=== PATIENT | male | born 1955 | race Caucasian/White ===

== ENCOUNTER → 2017-09-29 09:39 | Outpatient (CLI) | payer OTHER, SELFPAY ==
[2017-09-29 10:43] LABS: Hematocrit 48.5 % (41-53); Hemoglobin 16.8 g/dL (13.5-17.5); Mean Corpuscular HGB Conc 34.7 % (30-36); Mean Corpuscular Hemoglobin 33.1 PG (26-34); Mean Corpuscular Volume 95.6 fL (80-100); Platelet Count 260 X10^3/uL (150-400); Red Blood Cell Count 5.07 X10^6/uL (4.5-5.9); Red Cell Distribution Width 12.7 % (11.6-14.8); White Blood Cell Count 5.5 X10^3/uL (4.5-11.0)
[2017-09-29 11:08] LABS: Alanine Aminotransferase 33 IU/L (21-72); Albumin 4.3 g/dL (3.5-5.0); Albumin Globulin Ratio 1.3 (1.0-2.8); Alkaline Phosphatase 77 U/L (38-126); Aspartate Aminotransferase 25 IU/L (17-59); BUN Creatinine Ratio 13.3 (6-22); Bilirubin Total 0.8 mg/dL (0.2-1.3); Calcium 9.6 mg/dL (8.4-10.2); Cholesterol 252 mg/dL (140-199); Estimated Glomerular Filt Rate > 60.0 mL/min (>60); Globulin 3.3 g/dL (1.7-4.1); Glucose 92 mg/dL (80-110); HDL Cholesterol 64 mg/dL (40-60); HEMOLYSIS < 15 (0-50); LDL Cholesterol Calculated 166 mg/dL (<100); Sodium 140 mmol/L (137-145); Total Protein 7.6 g/dL (6.3-8.2); Triglycerides 108 mg/dL (35-150)
[2017-09-29 11:39] LABS: Prostate Specific Antigen Scrn 1.43 ng/mL (0.1-4.0)
== END ==
PROVIDERS: PCP Internal Medicine; Visit Provider Internal Medicine
DX: E78.5 Hyperlipidemia, unspecified (principal); D12.6 Benign neoplasm of colon, unspecified; Z00.00 Encounter for general adult medical examination without abnormal findings
CPT/HCPCS: 36415; 80053; 80061; 85027; G0103

== ENCOUNTER → 2018-09-09 07:47 | Outpatient (CLI) | payer OTHER, SELFPAY ==
[2018-09-09 09:19] LABS: Alanine Aminotransferase 25 IU/L (21-72); Albumin 4.4 g/dL (3.5-5.0); Albumin Globulin Ratio 1.3 (1.0-2.8); Alkaline Phosphatase 71 U/L (38-126); Aspartate Aminotransferase 29 IU/L (17-59); BUN Creatinine Ratio 18.9 (6-22); Bilirubin Total 0.6 mg/dL (0.2-1.3); Blood Urea Nitrogen 17 mg/dL (9-20); Calcium 9.3 mg/dL (8.4-10.2); Carbon Dioxide 29 mmol/L (22-32); Chloride 101 mmol/L (98-107); Cholesterol 220 mg/dL (140-199); Estimated Glomerular Filt Rate > 60.0 mL/min (>60); Globulin 3.4 g/dL (1.7-4.1); Glucose 95 mg/dL (80-110); HDL Cholesterol 59 mg/dL (40-60); HEMOLYSIS < 15 (0-50); LDL Cholesterol Calculated 128 mg/dL (<100); Potassium 4.3 mmol/L (3.4-5.1); Sodium 140 mmol/L (137-145); Total Protein 7.8 g/dL (6.3-8.2); Triglycerides 166 mg/dL (35-150)
[2018-09-09 09:36] LABS: Vitamin D 25 Hydroxy (D3) 62.4 ng/mL (30.0-100.0)
== END ==
PROVIDERS: PCP Student in an Organized Health Care Education/Training Program; Visit Provider Student in an Organized Health Care Education/Training Program
DX: E55.9 Vitamin D deficiency, unspecified (principal); E78.5 Hyperlipidemia, unspecified; Z79.899 Other long term (current) drug therapy
CPT/HCPCS: 36415; 80053; 80061; 82306

== ENCOUNTER 2019-03-30 07:36 | Day surgery (SDC) | payer OTHER, SELFPAY ==
--- NOTE | 2019-03-30 | PATH_ITS ---
[facility] Accession Number: [id number] . 01 Material submitted: . PART A: colon - ASCENDING COLON POLYPS BIOPSY X3 PART B: colon - COLON POLYP AT 60 CM . 02 Diagnosis: A. Ascending Colon Polyps, Biopsies: Fragments of tubular adenoma and fragments of hyperplastic polyp (three polyps removed). . B. Colon at 60 cm, Polyp: Colonic mucosa with focal mucosal hyperplasia. Negative for dysplasia or malignancy. Additional step sections examined. MRV 04/02/2019 1345 Local . 02 Electronically signed: . Dejuan Alvarez MD, PhD, Pathologist NPI- [id number] . 01 Gross description: . Part A: ASCENDING COLON POLYPS BIOPSY X3: Received in formalin are multiple fragment(s) of peoples, soft tissue measuring 0.1 x 0.1 x 0.1 cm to 0.3 x 0.2 x 0.2 cm submitted entirely in 1 cassette(s) Part B: COLON POLYP AT 60 CM: Received in formalin are 4 fragment(s) of peoples, soft tissue measuring 0.1 x 0.1 x 0.1 cm to 0.3 x 0.2 x 0.2 cm submitted entirely in 1 cassette(s) /[facility] [place] 03/30/2019 2226 Local . 02 Pathologist provided ICD-10: D12.2, K63.5 . 02 CPT . 918121, 015269 Performed at: [facility] [address], [place], [place] [id number] MD Ravi Farley MD Phone: [phone] Performed at: [facility] [address] [place], [place] [id number] MD Daniella Hazel MD Phone: [phone]
[2019-03-30 08:08] VITALS: BP 145/94; PULSE 114; RESP 16; TEMP 36.3; O2SAT 97; BMI 24.7
[2019-03-30] MEDS: fentaNYL 250 MCG/5 ML INJ IV (09:04)
[2019-03-30] MEDS: MIDAZOLAM 5 MG/5 ML VIAL IV (09:04)
--- NOTE | 2019-03-30 09:27 | PM.HP.1 ---
History of Present Illness History of Present Illness Date Patient Seen: 03/30/19 Time Patient Seen: 09:05 Chief complaint: [id number] Narrative: The patient is a gentleman here for a screening colonoscopy. He has had multiple colonoscopies and had multiple polyps removed. His last exam was 3 years ago. Patient History Medical History Adopted (Resolved) Benign neoplasm of adenomatous polyp (Resolved 2015) Colon polyp (Resolved 2010) Hepatitis A (Acute ~1989) Hyperlipidemia (Chronic) Surgical History H/O colonoscopy (Resolved 2010) History of colonoscopy with polypectomy (Acute) History of hernia repair (Acute) Family & Social History Social History: household members significant other Tobacco & Substance use: Smoking Status Never smoker Meds Home Medications and Allergies Home Medications Medication Instructions Recorded Confirmed Type rosuvastatin 40 mg tablet 40 mg PO DAILY #90 tab 12/03/17 03/30/19 Rx paroxetine HCl 30 mg tablet 30 mg PO QDAY #90 tab 11/17/18 03/30/19 Rx Allergies Allergy/AdvReac Type Severity Reaction Status Date / Time No Known Drug Allergies Allergy Verified 03/30/19 08:03 Review of Systems Review of Systems ROS Unobtainable: All systems reviewed & are unremarkable except as noted in HPI and below Exam Vital Signs (past 8 hours): - 03/30/19 08:08 Temperature 97.3 F L Pulse Rate 114 H Respiratory Rate 16 Blood Pressure 145/94 H Pulse Oximetry 97 Oxygen Delivery Method Room Air Narrative Exam Narrative: Pleasant cooperative patient no apparent distress. Lungs are clear to auscultation. No rales or rhonchi. Heart regular rate and rhythm no murmur gallop. Abdomen is soft nontender without mass. No obvious hernias. Patient is alert and oriented x3. Assessment & Plan Assessment & Plan narrative: The patient for a screening colonoscopy. I have discussed the procedure with them. Risks of bleeding, perforation which would necessitate major operation, failure to find remove all lesions, the potential tattoo were all discussed. All questions were answered. They wished to proceed.
--- NOTE | 2019-03-30 09:29 | PM.PREOP ---
Pre-operative Note Interval Note History & Physical reviewed/Exam performed by Physician: Yes Changes to H&P: No ASA Class (for procedural sedation): I
--- NOTE | 2019-03-30 09:59 | PM.OP.ENDO ---
Operative Date/Time/Diagnoses Date of procedure: 03/30/19 Time of procedure: 10:00 Pre-op diagnosis: History of numerous polyps. Last exam 3 years ago. Post-op diagnosis: same (Polyps. Pandiverticulosis. Rectal varicosities.) Procedure & Clinicians Study performed: Colonoscopy with cold biopsy Same procedure as scheduled: Yes Indications: History of polyps. Screening. Surgeon: Frederick Diaz Procedure Notes SCOAP/Timeout: Performed Procedure in detail: The patient was placed in the left lateral decubitus position and underwent IV sedation directed by the surgeon consisting of fentanyl and Versed. Digital exam was unremarkable. Prostate is normal. No masses felt.. The scope was inserted and advanced through the rectum into the sigmoid, descending, transverse, and ascending colon. Numerous diverticuli were seen in the sigmoid colon an additional diverticuli were scattered along the path of the colon.. The cecum was reached identified by the ileocecal valve and the appendiceal opening. The scope was gradually brought out. Polyps were found at the ascending colon(3 of them) and at 60 cm from the anal verge(1 of them). All were small. The scope ultimately was retroflexed in the rectum. The appearance was remarkable for rectal varicosities though there did not appear to be hemorrhoidal disease at the anus.. The scope was removed and the patient tolerated the procedure well. The prep was very good. Scope withdrawal time: 8 minutes(17 total) Sedation minutes: 28 Findings: diverticulosis, polyp (For of them removed) and other findings (Rectal varicosities) Specimen(s): other (Polyps) Complications: none Post-procedure Recommendations: Colonscopy in 5 years (Due to history of polyps) Follow up: as needed Disposition: PACU
[2019-03-30 10:05] VITALS: BP 127/75; PULSE 102; RESP 15; TEMP 36.2; O2SAT 94
[2019-03-30 10:12] VITALS: BP 119/75; PULSE 104; RESP 16; TEMP 36.9; O2SAT 99
== END 2019-03-30 10:18 | disposition home or self-care (01) ==
PROVIDERS: PCP Student in an Organized Health Care Education/Training Program; Visit Provider Specialist
PROC: 0DJD8ZZ Inspection of Lower Intestinal Tract, Via Natural or Artificial Opening Endoscopic (ICD-10-PCS; CPT 45378; principal; 2019-03-30 08:45)
DX: Z12.11 Encounter for screening for malignant neoplasm of colon (principal); Z86.010 Personal history of colon polyps; E78.5 Hyperlipidemia, unspecified; I86.8 Varicose veins of other specified sites; K57.30 Diverticulosis of large intestine without perforation or abscess without bleeding; D12.2 Benign neoplasm of ascending colon; K63.5 Polyp of colon
CPT/HCPCS: 45380; 99152; 99153; J2250; J3010

== ENCOUNTER → 2019-11-23 09:16 | Outpatient (CLI) | payer OTHER, SELFPAY ==
[2019-11-23 10:19] LABS: Prostate Specific Antigen Scrn 1.15 ng/mL (0.1-4.0)
== END ==
PROVIDERS: PCP Student in an Organized Health Care Education/Training Program; Referring Provider Student in an Organized Health Care Education/Training Program; Visit Provider Student in an Organized Health Care Education/Training Program
DX: Z12.5 Encounter for screening for malignant neoplasm of prostate (principal)
CPT/HCPCS: 36415; G0103

== ENCOUNTER → 2020-05-26 12:56 | Outpatient (CLI) | payer OTHER, SELFPAY ==
[2020-05-26] MEDS: COVID-19 VACC(MODERNA-1)/PF 100 MCG/0.5 ML VIAL IM (13:01)
== END ==
PROVIDERS: PCP Student in an Organized Health Care Education/Training Program; Visit Provider Internal Medicine
DX: Z23 Encounter for immunization (principal)
CPT/HCPCS: 0011A; 91301

== ENCOUNTER → 2020-06-23 12:48 | Outpatient (CLI) | payer MEDICARE, OTHER, SELFPAY ==
[2020-06-23] MEDS: COVID-19 VACC #2, MRNA(MOD) 100 MCG/0.5 ML VIAL IM (12:58)
== END ==
PROVIDERS: PCP Student in an Organized Health Care Education/Training Program; Visit Provider Internal Medicine
DX: Z23 Encounter for immunization (principal)
CPT/HCPCS: 0012A; 91301

== ENCOUNTER → 2020-12-11 08:03 | Outpatient (CLI) | payer MEDICARE, OTHER, SELFPAY ==
--- NOTE | 2020-12-11 08:04 | DI.ECHO.S_ITS ---
[facility] +---------+ : : [address] : : : : [id number] : : : : Phone: [phone] +---------+ Echocardiogram Report + + :Name: MURIEL CABRERA Study Date: 12/11/2020 Height: 73 in : :[facility] ReadingLocation: Weight: 195 lb : : Gender: Male BSA: 2.1 m2 : :: 1955 Age: 65 yrs BP: 143/96 mmHg: :Reason For Study: LEFT VENTRICULAR HYPERTROPHY : :Ordering Physician: ISAI, : :COCO Performed By: Adele Lira : :Referring: COCO ALEX : + + Interpretation Summary Borderline concentric left ventricular hypertrophy with ejection fraction 50- 55%. Septal motion is consistent with conduction abnormality. Moderate mitral regurgitation. Mild tricuspid regurgitation. The ascending aorta is mildly enlarged. Procedure: A two-dimensional transthoracic echocardiogram with color flow and Doppler was performed. The study quality was technically adequate. There is no prior echocardiogram noted for this patient. The patient was in sinus rhythm with heart rates between 77-84 bpm during the exam. Left Ventricle: The left ventricle is normal in size. There is borderline concentric left ventricular hypertrophy. The ejection fraction is estimated to be 50-55%. Septal motion is consistent with conduction abnormality. Diastolic parameters suggest probable normal left ventricular diastolic function and normal filling pressures. Right Ventricle: The right ventricle is normal in size and function. Atria: The left atrial size is normal. Right atrial size is normal. There is no Doppler evidence for an interatrial shunt. Mitral Valve: The mitral valve leaflets appear thin and pliable. There is no mitral annular calcification. There is moderate mitral regurgitation. Aortic Valve: The aortic valve opens well. There is no aortic valve stenosis. No aortic regurgitation is present. Tricuspid Valve: The tricuspid valve is normal in structure and function. There is mild tricuspid regurgitation. The right ventricular systolic pressure is estimated to be at least 22 mmHg based on an estimated right atrial pressure of 3 mm Hg. Pulmonic Valve: The pulmonic valve is not well seen, but is grossly normal. There is no pulmonic valvular regurgitation. Great Vessels: The aortic root is normal size. The ascending aorta is mildly enlarged. The IVC is of normal diameter and collapses greater than 50% with a sniff. This suggests a low right atrial pressure of 3 mm Hg. Pericardium/ Pleura There is no pericardial effusion. There is no pleural effusion. MMode/2D Measurements & Calculations LVIDd: 4.5 cm LVOT diam: 2.2 cm LVIDs: 3.4 cm Ao root diam: 3.5 cm FS: 23.1 % asc Aorta Diam: 3.7 cm IVSd: 1.1 cm Ao Arch Diam (Prox Trans): 3.1 cm LVPWd: 1.0 cm LV burks. diameter/BSA (cm/m^2): 2.1 LV sys. diameter/BSA (cm/m^2): 1.6 LA A2 area: 21.7 cm2 RA long axis: 5.0 cm LA A4 area: 18.5 cm2 RA area: 16.4 cm2 LA length (vol): 5.6 cm RA vol: 45.2 ml LA vol: 60.2 ml RA : 21.2 ml/m2 LA vol index: 28.3 ml/m2 IVC diam: 1.2 cm RVD1 (basal): 3.4 cm TAPSE: 2.2 cm Doppler Measurements & Calculations Ao V2 max: 135.9 cm/sec LVOT Max Don: 96.7 cm/sec Ao V2 mean: 90.9 cm/sec LV V1 max P.7 mmHg Ao max P.4 mmHg LV V1 VTI: 19.5 cm Ao mean P.7 mmHg XAVIER(I,D): 2.4 cm2 Ao V2 VTI: 30.1 cm XAVIER(V,D): 2.6 cm2 sev ratio: 0.65 XAVIER indexed to BSA (cm^2/m^2): 1.1 MV E max don: 42.4 cm/sec TR max don: 218.2 cm/sec MV A max don: 52.1 cm/sec TR max P.0 mmHg MV E/A: 0.81 PA V2 max: 106.2 cm/sec Med Peak E' Don: 6.7 cm/sec PA V2 mean: 71.0 cm/sec E/E' med: 6.3 PA mean P.2 mmHg Lat Peak E' Don: 9.0 cm/sec PA pr(Accel): 36.2 mmHg E/E' lat: 4.7 E/e' average: 5.5 MV dec time: 0.21 sec SV(LVOT): 72.2 ml Electronically signed by: Dayne Phillips on Reading Physician:12/12/2020 11:06 AM
== END ==
PROVIDERS: PCP Student in an Organized Health Care Education/Training Program; Referring Provider Student in an Organized Health Care Education/Training Program; Visit Provider Student in an Organized Health Care Education/Training Program
DX: R94.31 Abnormal electrocardiogram [ECG] [EKG] (principal); I08.1 Rheumatic disorders of both mitral and tricuspid valves; I77.89 Other specified disorders of arteries and arterioles
CPT/HCPCS: 93306

== ENCOUNTER → 2021-11-27 08:09 | Outpatient (CLI) | payer MEDICARE, OTHER, SELFPAY ==
[2021-11-27 09:09] LABS: Add Manual Diff / Slide Review NO; Basophils Absolute Auto 0 /uL (0-100); Basophils Percent Auto 0.6 % (0-2); Eosinophils Absolute Auto 100 /uL (0-450); Eosinophils Percent Auto 1.3 % (2-4); Hematocrit 45.4 % (41-53); Hemoglobin 15.7 g/dL (13.5-17.5); Lymphocytes Absolute Auto 1800 /uL (1100-4500); Lymphocytes Percent Auto 22.3 % (25-40); Mean Corpuscular HGB Conc 34.7 % (30-36); Mean Corpuscular Hemoglobin 33.4 PG (26-34); Mean Corpuscular Volume 96.4 fL (80-100); Monocytes Absolute Auto 800 /uL (0-900); Monocytes Percent Auto 10.1 % (3-14); Neutrophils Absolute Auto 5300 /uL (1500-7000); Neutrophils Percent Auto 65.7 % (50-75); Platelet Count 232 X10^3/uL (150-400); Red Blood Cell Count 4.71 X10^6/uL (4.5-5.9); White Blood Cell Count 8.1 X10^3/uL (4.5-11.0)
[2021-11-27 09:39] LABS: Alanine Aminotransferase 24 IU/L (<50); Albumin 4.4 g/dL (3.5-5.0); Albumin Globulin Ratio 1.3 (1.0-2.8); Alkaline Phosphatase 83 U/L (38-126); Aspartate Aminotransferase 31 IU/L (17-59); BUN Creatinine Ratio 12.1 (6-22); Bilirubin Total 0.7 mg/dL (0.2-1.3); Blood Urea Nitrogen 11 mg/dL (9-20); Carbon Dioxide 30 mmol/L (22-32); Chloride 106 mmol/L (98-107); Cholesterol 183 mg/dL (140-199); Estimated Glomerular Filt Rate > 60 mL/min (>60); Globulin 3.3 g/dL (1.7-4.1); Glucose 81 mg/dL (80-110); HDL Cholesterol 61 mg/dL (40-60); HEMOLYSIS < 15 (0-50); LDL Cholesterol Calculated 103 mg/dL (<100); Potassium 4.7 mmol/L (3.4-5.1); Sodium 140 mmol/L (137-145); Total Protein 7.7 g/dL (6.3-8.2); Triglycerides 95 mg/dL (35-150)
[2021-11-27 10:03] LABS: Prostate Specific Antigen Scrn 1.18 ng/mL (0.1-4.0)
== END ==
PROVIDERS: PCP Family Medicine; Referring Provider Family Medicine; Visit Provider Family Medicine
DX: E78.5 Hyperlipidemia, unspecified (principal); Z12.5 Encounter for screening for malignant neoplasm of prostate; Z00.00 Encounter for general adult medical examination without abnormal findings
CPT/HCPCS: 36415; 80053; 80061; 85025; G0103

== ENCOUNTER → 2022-01-10 06:53 | Outpatient (CLI) | payer MEDICARE, OTHER, SELFPAY ==
--- NOTE | 2022-01-10 06:56 | DI.ECHO.S_ITS ---
[facility]---------+ [facility] +---------+ : : [address] : [address] : [address] : : : : [id number] : : : : Phone: [phone] : : [phone] +---------+ Echocardiogram Report + + :Name: MURIEL CABRERA Study Date: 01/10/2022 Height: 73 in : :[facility] ReadingLocation: Weight: 195 lb : : Gender: Male BSA: 2.1 m2 : :: 1955 Age: 66 yrs BP: 162/98 mmHg: :Reason For Study: Aortic, Ascending Aneurysm : :Ordering Physician: : :GIORGIO CAPELLAN Performed By: Trell Huber : :Referring: GIORGIO CAPELLAN : + + Interpretation Summary 1) Normal left ventriciular size and thickenss with low normal sysotlic function (EF 50-55%). 2 Normal right ventricular size and function. 3) No significant valvular abnormalities. 4) The ascending aorta is at the upper limits of normal in size at 3.7cm. 5) Hypertension present during the study (BP 162/98mmHg). 6) No prior echo available for comparison. Procedure: A two-dimensional transthoracic echocardiogram with color flow and Doppler was performed. The study quality was technically adequate. Comparison is made with the echocardiogram of 12/11/2020. The patient was in normal sinus rhythm during the exam. Left Ventricle: The left ventricle is normal in size and wall thickness. Left ventricular systolic function is low normal. The ejection fraction is estimated to be 50-55%. There are no focal wall motion abnormalities. Diastolic function could not be accurately assessed due to unobtainable data. Right Ventricle: The right ventricle is normal in size and function. Atria: Both atria are normal in size. The interatrial septum grossly appears intact with no obvious evidence for an atrial septal defect. Mitral Valve: The mitral valve is normal in structure and function. There is mild mitral regurgitation. Aortic Valve: The aortic valve is normal in structure and function. There is no aortic valve stenosis. No aortic regurgitation is present. Tricuspid Valve: The tricuspid valve is normal in structure and function. No tricuspid regurgitation. Pulmonary artery pressures cannot be estimated because of the lack of a measurable TR jet velocity. Pulmonic Valve: The pulmonic valve is not well seen, but is grossly normal. There is no pulmonic valvular regurgitation. Great Vessels: The aortic root is normal size. The ascending aorta is at the upper limits of normal in size. The IVC is of normal diameter and collapses greater than 50% with a sniff. This suggests a low right atrial pressure of 3 mm Hg. Pericardium/ Pleura There is no pericardial effusion. There is no pleural effusion. MMode/2D Measurements & Calculations LVIDd: 5.5 cm LVOT diam: 2.2 cm LVIDs: 4.1 cm Ao root diam: 3.2 cm FS: 25.5 % asc Aorta Diam: 3.7 cm IVSd: 0.90 cm LVPWd: 1.0 cm LV burks. diameter/BSA (cm/m^2): 2.6 LV sys. diameter/BSA (cm/m^2): 1.9 LA dimension: 4.1 cm RA long axis: 4.8 cm LA A2 area: 20.9 cm2 LA A4 area: 15.5 cm2 LA length (vol): 5.8 cm LA vol: 47.5 ml LA vol index: 22.3 ml/m2 LVLs ap4: 7.2 cm LVLd ap2: 7.8 cm LVLs ap2: 6.8 cm TAPSE_phl: 2.1 cm Doppler Measurements & Calculations Ao V2 max: 126.0 cm/sec LVOT Max Don: 92.7 cm/sec Ao V2 mean: 93.7 cm/sec LV V1 max P.4 mmHg Ao max P.0 mmHg LV V1 VTI: 18.4 cm Ao mean P.0 mmHg XAVIER(I,D): 3.0 cm2 Ao V2 VTI: 23.7 cm XAVIER(V,D): 2.8 cm2 sev ratio: 0.78 XAVIER indexed to BSA (cm^2/m^2): 1.4 MV E max don: 47.6 cm/sec SV(LVOT): 69.9 ml MV A max don: 68.1 cm/sec MV E/A: 0.70 Med Peak E' Don: 8.2 cm/sec E/E' med: 5.8 Lat Peak E' Don: 9.2 cm/sec E/E' lat: 5.2 E/e' average: 5.5 MV dec time: 0.19 sec AV VR_phl: 0.74 MV P1/2t-pr_phl: 55.0 msec XAVIER(VTI)/BSA_phl: 1.4 Reading Physician:01:52 PM
== END ==
PROVIDERS: PCP Family Medicine; Referring Provider Family Medicine; Visit Provider Family Medicine
DX: I77.89 Other specified disorders of arteries and arterioles (principal); I34.0 Nonrheumatic mitral (valve) insufficiency; I10 Essential (primary) hypertension
CPT/HCPCS: 93306

== ENCOUNTER → 2022-02-13 09:34 | Outpatient (CLI) | payer MEDICARE, OTHER, SELFPAY ==
[2022-02-13 11:38] LABS: COVID19 -Nasal RAPID Negative (Negative)
== END ==
PROVIDERS: PCP Family Medicine; Visit Provider Surgery
DX: Z20.822 Contact with and (suspected) exposure to COVID-19 (principal); Z01.812 Encounter for preprocedural laboratory examination
CPT/HCPCS: 87635; C9803

== ENCOUNTER 2022-02-14 06:35 | Day surgery (SDC) | payer MEDICARE, OTHER, SELFPAY ==
--- NOTE | 2022-02-14 | PATH_ITS ---
[facility] Accession Number: [id number] . 01 Material submitted: . colon - ASCENDING POLYP . 01 Diagnosis: Ascending Colon, Polyp, Biopsy: Tubular adenoma. MRV 02/18/2022 1640 Local . 01 Electronically signed: . Daniella Hazel MD, Pathologist NPI- [id number] . 01 Gross description: . ASCENDING POLYP: Received in formalin are 3 fragment(s) of peoples, soft tissue measuring 1.5 x 0.5 x 0.4 cm to 0.2 x 0.1 x 0.1 cm submitted entirely in 1 cassette(s) /[facility]PE 02/16/2022 0542 Local . 01 Pathologist provided ICD-10: D12.2 . 01 CPT . 968082 Specimen Comment: A courtesy copy of this report has been sent to [phone] Performed at: 01 [facility] [address] [place] [address], [place], [place] [id number] MD Ravi Farley MD Phone: [phone]
[2022-02-14 07:34] VITALS: BP 143/97; PULSE 105; RESP 16; TEMP 36.6; O2SAT 96; BMI 25.7
--- NOTE | 2022-02-14 07:51 | PM.HP.1 ---
History of Present Illness History of Present Illness Date Patient Seen: 02/14/22 Time Patient Seen: 07:51 Chief complaint: SDC Narrative: Jose is a 66-year-old man who has had multiple colonoscopies in the past most recently [address] Diaz. He has had adenomatous polyps removed, including most recently 3 years ago. Patient History Medical History Adopted Benign neoplasm of adenomatous polyp (2015) Colon polyp (2010) Hepatitis A (~1989) Hyperlipidemia Well adult exam Surgical History H/O colonoscopy (2010) History of colonoscopy with polypectomy History of hernia repair Family & Social History Social History: household members spouse,significant other Tobacco & Substance use: Smoking Status Never smoker alcohol intake current alcohol intake frequency 3 or more drinks per day Substance Use Type does not use Meds Home Medications and Allergies Home Medications Medication Instructions Recorded Confirmed Type paroxetine HCl 20 mg tablet 30 mg PO DAILY #90 tabs 11/01/21 02/14/22 Rx rosuvastatin 40 mg tablet 40 mg PO DAILY #90 tabs 11/26/21 02/14/22 Rx Allergies Allergy/AdvReac Type Severity Reaction Status Date / Time No Known Drug Allergies Allergy Verified 02/14/22 07:29 Exam Vital Signs (past 8 hours): - 02/14/22 07:34 Temperature 97.9 F Pulse Rate 105 H Respiratory Rate 16 Blood Pressure 143/97 H Pulse Oximetry 96 Oxygen Delivery Method Room Air Oxygen Delivery Method Room Air Const General: healthy appearing Resp Effort & Inspection: normal respiratory effort Assessment & Plan Assessment and plan (1) Personal history of colonic polyps: Status: Acute Plan Jose is a 66-year-old man with a personal history of colon polyps. We reviewed the risks and benefits of colonoscopy and he would like to proceed. Time Spent With Patient Critical Care time: I spent a total of [] minutes of critical care time on this patient's care today; this time is exclusive of procedural time.
[2022-02-14] MEDS: LACTATED RINGERS 1,000 ML 200 ML IV (07:58)
[2022-02-14] MEDS: MIDAZOLAM 5 MG/5 ML VIAL IV (08:02)
[2022-02-14] MEDS: fentaNYL 100 MCG/2 ML INJ IV (08:02)
[2022-02-14 08:26] VITALS: BP 119/77; PULSE 97; RESP 16; TEMP 36.5; O2SAT 97
--- NOTE | 2022-02-14 08:27 | PM.OP.COLON ---
Operative Date/Time/Diagnoses Date of procedure: 02/14/22 Time of procedure: 08:27 Pre-op diagnosis: History of colon polyps Post-op diagnosis: same Procedure & Clinicians Study performed: Colonoscopy Same procedure as scheduled: Yes Surgeon: Javan Madison Procedure Notes Procedure in detail: Surgeon: Javan Madison MD Procedure: The patient was brought to the endoscopy suite, placed in left lateral decubitus position. The patient was connected to monitoring devices. A time-out was performed. Sedation was administered. Once the patient was adequately sedated, a digital rectal exam was performed and was normal. The scope was then inserted and advanced to the cecum where the appendiceal orifice was identified and photographed. The scope was then slowly withdrawn over greater than 6 minutes. The mucosa was thoroughly inspected. There was a 1 cm pedunculated polyp on a stalk in the ascending colon near the hepatic flexure. Polyp was removed with a cold snare. There was sigmoid diverticulosis. The scope was retroflexed in the rectum. There were internal hemorrhoids. The scope was straightened and removed. The patient was awakened and brought to recovery. Versed: 5 mg Fentanyl: 100 mcg EBL: 5 mL Findings: 1 cm hepatic flexure polyp and sigmoid diverticulosis Scope withdrawal time: 11 Sedation minutes: 19 Post-procedure Recommendations: Will call with biopsy results Disposition: PACU
[2022-02-14 08:31] VITALS: BP 103/77; PULSE 98; RESP 14; O2SAT 93
[2022-02-14 08:45] VITALS: BP 110/66; PULSE 70; RESP 16; TEMP 36.8; O2SAT 98
== END 2022-02-14 08:58 | disposition home or self-care (01) ==
PROVIDERS: PCP Family Medicine; Referring Provider Surgery; Visit Provider Surgery
PROC: 0DJD8ZZ Inspection of Lower Intestinal Tract, Via Natural or Artificial Opening Endoscopic (ICD-10-PCS; CPT 45378; principal; 2022-02-14 07:45)
DX: Z12.11 Encounter for screening for malignant neoplasm of colon (principal); Z86.010 Personal history of colon polyps; K57.30 Diverticulosis of large intestine without perforation or abscess without bleeding; K64.8 Other hemorrhoids; D12.2 Benign neoplasm of ascending colon
CPT/HCPCS: 45385; 99152; J2250; J3010

== ENCOUNTER → 2022-08-06 08:35 | Outpatient (CLI) | payer MEDICARE, OTHER, SELFPAY ==
[2022-08-06 10:09] LABS: Alanine Aminotransferase 25 IU/L (<50); Albumin 4.1 g/dL (3.5-5.0); Albumin Globulin Ratio 1.1 (1.0-2.8); Alkaline Phosphatase 66 U/L (38-126); Aspartate Aminotransferase 27 IU/L (17-59); BUN Creatinine Ratio 16.5 (6-22); Bilirubin Total 0.5 mg/dL (0.2-1.3); Blood Urea Nitrogen 14 mg/dL (9-20); Calcium 9.3 mg/dL (8.4-10.2); Carbon Dioxide 26 mmol/L (22-32); Chloride 108 mmol/L (98-107); Cholesterol 199 mg/dL (140-199); Estimated Glomerular Filt Rate > 60 mL/min (>60); Globulin 3.6 g/dL (1.7-4.1); Glucose 98 mg/dL (80-110); HDL Cholesterol 62 mg/dL (40-60); HEMOLYSIS < 15 (0-50); LDL Cholesterol Calculated 119 mg/dL (<100); Potassium 4.3 mmol/L (3.4-5.1); Sodium 138 mmol/L (137-145); Total Protein 7.7 g/dL (6.3-8.2); Triglycerides 90 mg/dL (35-150)
[2022-08-06 10:36] LABS: Prostate Specific Antigen 1.32 ng/mL (0.10-4.00)
== END ==
PROVIDERS: PCP Family Medicine; Referring Provider Family Medicine; Visit Provider Family Medicine
DX: E78.5 Hyperlipidemia, unspecified (principal); D12.6 Benign neoplasm of colon, unspecified; F32.9 Major depressive disorder, single episode, unspecified; Z12.5 Encounter for screening for malignant neoplasm of prostate
CPT/HCPCS: 36415; 80053; 80061; 84153; G0103

== ENCOUNTER → 2023-01-27 06:50 | Outpatient (CLI) | payer MEDICARE, OTHER, SELFPAY ==
--- NOTE | 2023-01-27 06:51 | DI.ECHO.S_ITS ---
[facility]---------[facility] +---------+ : : [address] : [address] : : : : [id number] : : : : Phone: [phone] : : [phone] +---------+ Echocardiogram Report + + :Name: MURIEL CABRERA Study Date: 01/27/2023 Height: 73 in : :[facility] ReadingLocation: Weight: 190 lb : : Gender: Male BSA: 2.1 m2 : :: 1955 Age: 67 yrs BP: 137/80 mmHg: :Reason For Study: Elevation of Levels of Lactic Acid : :Dehydrogenase : :Ordering Physician: TIMI, : :GIORGIO Performed By: Shanna Huerta : :Referring: GIORGIO CAPELLAN : + + Interpretation Summary The ejection fraction is estimated to be 60-65%. Diastolic parameters suggest probable normal left ventricular diastolic function and normal filling pressures. The right ventricle is normal in size and function. There is moderate mitral regurgitation. Pulmonary artery pressures cannot be estimated because of the lack of a measurable TR jet velocity. The ascending aorta is at the upper limits of normal in size, 3.7 cm. Compared to the prior study dated 01/10/2022, the mitral regurgitation has increased. Procedure: A two-dimensional transthoracic echocardiogram with color flow and Doppler was performed. The study quality was technically adequate. Comparison is made with the echocardiogram of 01/10/2022. The patient was in a tachycardic rhythm during the exam. Left Ventricle: The left ventricle is normal in size and wall thickness. The ejection fraction is estimated to be 60-65%. Diastolic parameters suggest probable normal left ventricular diastolic function and normal filling pressures. Right Ventricle: The right ventricle is normal in size and function. Atria: The left atrial size is normal. Right atrial size is normal. There is no Doppler evidence for an interatrial shunt. Mitral Valve: The mitral valve is normal. There is no mitral valve stenosis. There is moderate mitral regurgitation. Aortic Valve: The aortic valve is trileaflet. The aortic valve opens well. There is mild aortic valve sclerosis. There is no aortic valve stenosis. No aortic regurgitation is present. Tricuspid Valve: The tricuspid valve is normal. There is no tricuspid stenosis. There is trace tricuspid regurgitation. Pulmonary artery pressures cannot be estimated because of the lack of a measurable TR jet velocity. Pulmonic Valve: The pulmonic valve is not well visualized. There is no pulmonic valvular stenosis. There is trace pulmonic regurgitation. Great Vessels: The aortic root is normal size. The ascending aorta is at the upper limits of normal in size. The pulmonary artery is normal size. The IVC is of normal diameter and collapses greater than 50% with a sniff. This suggests a low right atrial pressure of 3 mm Hg. Pericardium/ Pleura There is no pericardial effusion. MMode/2D Measurements & Calculations LVIDd: 4.4 cm LVOT diam: 2.1 cm LVIDs: 2.4 cm Ao root diam: 3.2 cm FS: 45.5 % asc Aorta Diam: 3.7 cm IVSd: 1.0 cm LVPWd: 1.0 cm LV burks. diameter/BSA (cm/m^2): 2.1 LV sys. diameter/BSA (cm/m^2): 1.1 LA A2 area: 19.0 cm2 RA long axis: 5.0 cm LA A4 area: 16.9 cm2 RA area: 14.7 cm2 LA length (vol): 5.7 cm RA vol: 36.9 ml LA vol: 47.7 ml RA : 17.5 ml/m2 LA vol index: 22.6 ml/m2 RVD1 (basal): 2.9 cm LVLs ap4: 6.7 cm TAPSE: 1.8 cm LVLd ap2: 7.4 cm TAPSE_phl: 1.7 cm LVLs ap2: 6.4 cm Doppler Measurements & Calculations Ao V2 max: 149.6 cm/sec LVOT Max Don: 123.0 cm/sec Ao V2 mean: 103.4 cm/sec LV V1 max P.1 mmHg Ao max P.0 mmHg LV V1 VTI: 20.0 cm Ao mean P.8 mmHg XAVIER(I,D): 2.8 cm2 Ao V2 VTI: 24.9 cm XAVIER(V,D): 2.8 cm2 sev ratio: 0.80 XAVIER indexed to BSA (cm^2/m^2): 1.3 MV E max don: 46.3 cm/sec PA V2 max: 139.0 cm/sec MV A max don: 77.6 cm/sec PA V2 mean: 86.9 cm/sec MV E/A: 0.60 PA mean P.0 mmHg Med Peak E' Don: 9.5 cm/sec PA pr(Accel): 44.4 mmHg E/E' med: 4.9 Lat Peak E' Don: 8.2 cm/sec E/E' lat: 5.7 E/e' average: 5.3 MV dec time: 0.17 sec SV(LVOT): 69.3 ml AV VR_phl: 0.82 XAVIER(VTI)/BSA_phl: 1.3 Reading Physician:10:07 AM
== END ==
PROVIDERS: PCP Family Medicine; Referring Provider Family Medicine; Visit Provider Family Medicine
DX: I08.0 Rheumatic disorders of both mitral and aortic valves (principal); R74.02 Elevation of levels of lactic acid dehydrogenase [LDH]
CPT/HCPCS: 93306

== ENCOUNTER → 2023-08-13 10:30 | Outpatient (CLI) | payer MEDICARE, OTHER, SELFPAY ==
[2023-08-13 14:03] LABS: COVID-19 CEPHEID 4-PLEX PCR Negative (Negative); Influenza A - CEPHEID Flu A NEGATIVE (NEGATIVE); Influenza B - CEPHEID Flu B NEGATIVE (NEGATIVE); Respiratory Syncytial Virus Negative (Negative)
== END ==
PROVIDERS: PCP Family Medicine; Visit Provider Physician Assistant
DX: R05.1 Acute cough (principal)
CPT/HCPCS: 0241U

== ENCOUNTER 2023-08-15 10:53 | Emergency (ER) | payer MEDICARE, OTHER, SELFPAY ==
[2023-08-15 11:06] VITALS: BP 116/73; PULSE 96; RESP 14; TEMP 36.9; O2SAT 95; BMI 25.6
--- NOTE | 2023-08-15 11:21 | ED_ITS ---
HPI - SOB/Dyspnea General Chief Complaint: Shortness of Breath/Dyspnea Stated Complaint: wheezing/coughing/T-10 ref by Time Seen by Provider: 08/15/23 11:04 Source: patient Mode of arrival: Ambulatory Limitations: no limitations History of Present Illness HPI Narrative: Patient healthy 68-year-old male history of hypertension presenting today with upper respiratory like symptoms. He seen in July for something similar about again a few days ago. He reports that he gets into quite severe coughing spells. No significant fever has some mild chest pain. He reports that sleeping at night and lying flat he feels like he hears himself wheezing. He but he denies sitting up helps. He has no lower extremity edema. He is coughing up some productive sputum. Denies shortness of breath with exertion. No sore throat. Related Data Previous Rx's Medication Instructions Recorded rosuvastatin 40 mg tablet See Rx Instructions .Route 08/14/22 .COMPLEX #90 tabs amlodipine 2.5 mg tablet 2.5 mg PO BEDTIME #90 tabs 06/20/23 benzonatate 200 mg capsule 200 mg PO TID #30 caps 08/13/23 fluticasone propionate 50 1 spray intranasal DAILY #16 grams 08/13/23 mcg/actuation nasal spray,suspension (Flonase Allergy Relief) guaifenesin 1,200 mg tablet, 1,200 mg PO BID #30 tabs 08/13/23 extended release 12 hr codeine 10 mg-guaifenesin 200 mg/5 5 ml PO Q6H PRN cough #100 mL 08/15/23 mL oral liquid Allergies Allergy/AdvReac Type Severity Reaction Status Date / Time No Known Drug Allergies Allergy Verified 08/13/23 10:38 Patient History Medical History URI (upper respiratory infection) Hypertension Medicare annual wellness visit, subsequent Well adult exam Hepatitis A (~1989) Adopted Hyperlipidemia Benign neoplasm of adenomatous polyp (2015) Colon polyp (2010) Surgical History History of colonoscopy with polypectomy History of hernia repair H/O colonoscopy (2010) Social History household members: spouse and significant other Smoking Status: Never smoker alcohol intake: current Smoking Status: Never smoker alcohol intake frequency: 3 or more drinks per day Substance Use Type: does not use Exam Initial Vital Signs Initial Vital Signs: Vital Signs Temperature 98.5 F 08/15/23 11:06 Pulse Rate 96 H 08/15/23 11:06 Respiratory Rate 14 08/15/23 11:06 Blood Pressure 116/73 08/15/23 11:06 Pulse Oximetry 95 08/15/23 11:06 Oxygen Delivery Method Room Air 08/15/23 11:06 GENERAL: Alert 68-year-old male and in no acute distress. HEENT: Head atraumatic,EOMI, pupils reactive, face symmetric, moist mucous membranes CARDIOVASCULAR: Regular rate and rhythm without murmurs, rubs or gallops. RESPIRATORY: Breath sounds equal bilaterally, no wheezes rales or rhonchi. Cough with deep breaths, slight wheezing no severe respiratory distress speaks in full sentences ABDOMEN: Soft, nontender. Normoactive bowel sounds all 4 quadrants. No guarding or rebound. EXTREMITIES: Normal range of motion, no clubbing or edema. Neurovascularly intact NEUROLOGICAL: Alert and oriented x4.Normal gait and speech. SKIN: Warm, dry, no laceration, no petechiae, no rashes or lesions. Course Orders Ordered: ED Orders 08/15/23 11:21 XR chest 2V Stat 08/15/23 11:36 BNP [NT-proBNP (BNP-Adult 18+)] Stat CBC Auto Diff [Complete Blood Count AUTO DIFF] Stat CMP [Comprehensive Metabolic Panel] Stat Troponin & CK Cardiac Panel Stat 08/15/23 11:44 Respiratory Panel (Film Array) Stat Discontinued Medications Albuterol/Ipratropium (Albuterol/Ipratropium 3 Ml Ampul) 3 ml INH NOW ONE Stop: 08/15/23 11:29 Last Admin: 08/15/23 11:34 Dose: 3 ml Documented By: ASHLEY Vital Signs Vital signs: Vital Signs - 8 hr 08/15/23 11:06 08/15/23 13:13 Temperature 98.5 F Pulse Rate 96 H 89 Respiratory Rate 14 16 Blood Pressure 116/73 Pulse Oximetry 95 94 Oxygen Delivery Method Room Air Room Air MDM - SOB/Dyspnea Lab Data 08/15/23 11:36 08/15/23 11:36 Labs: Lab Results 08/15/23 08/15/23 Range/Units 11:36 11:44 WBC 5.9 (4.5-11.0) X10^3/uL RBC 4.56 (4.5-5.9) X10^6/uL Hgb 15.2 (13.5-17.5) g/dL Hct 44.0 (41-53) % MCV 96.6 (80-100) fL MCH 33.3 (26-34) PG MCHC 34.4 (30-36) % RDW 12.5 (11.6-14.8) % Plt Count 199 (150-400) X10^3/uL Neut % (Auto) 57.8 (50-75) % Lymph % (Auto) 23.3 L (25-40) % [place] % (Auto) 15.2 H (3-14) % Eos % (Auto) 2.8 (2-4) % Baso % (Auto) 0.9 (0-2) % Neut # (Auto) 3400 (5942-2451) /uL Lymph # (Auto) 1400 (2250-7409) /uL [place] # (Auto) 900 (0-900) /uL Eos # (Auto) 200 (0-450) /uL Baso # (Auto) 100 (0-100) /uL Sodium 131 L (137-145) mmol/L Potassium 4.2 (3.4-5.1) mmol/L Chloride 101 (98-107) mmol/L Carbon Dioxide 25 (22-32) mmol/L BUN 10 (9-20) mg/dL Creatinine 0.85 (0.66-1.25) mg/dL Estimated GFR > 60 (>60) mL/min BUN/Creatinine Ratio 11.8 (6-22) Glucose 82 (80-110) mg/dL Calcium 8.7 (8.4-10.2) mg/dL Total Bilirubin 0.6 (0.2-1.3) mg/dL AST 30 (17-59) IU/L ALT 17 (<50) IU/L Alkaline Phosphatase 64 (38-126) U/L Total Creatine Kinase 79 (55-170) U/L Troponin I < 0.012 (0.01-0.034) ng/mL NT-Pro-B Natriuret Pep 115 (<125) pg/mL Total Protein 7.5 (6.3-8.2) g/dL Albumin 4.1 (3.5-5.0) g/dL Globulin 3.4 (1.7-4.1) g/dL Albumin/Globulin Ratio 1.2 (1.0-2.8) Chlamy pneumoniae PCR Not detected (Not Detect) Adenovirus (PCR) Not detected (Not Detect) B.parapertussis DNA PCR Not detected (Not Detecte) Coronavirus OC43 (PCR) Not detected (Not Detect) Coronavirus HKU1 (PCR) Not detected (Not Detect) Coronavirus 229E (PCR) Not detected (Not Detect) SARS-CoV-2 (PCR) Not detected (Not Detecte) Coronavirus NL63 (PCR) Not detected (Not Detect) Human Metapneumovir PCR Detected H (Not Detect) Influenza Type A (PCR) Not detected (Not Detect) Influenza Type B (PCR) Not detected (Not Detect) M. pneumoniae (PCR) Not detected (Not Detect) Parainfluenza 1 (PCR) Not detected (Not Detect) Parainfluenza 2 (PCR) Not detected (Not Detect) Parainfluenza 3 (PCR) Not detected (Not Detect) Parainfluenza 4 (PCR) Not detected (Not Detect) RSV (PCR) Not detected (Not Detect) Entero/Rhino (PCR) Not detected (Not Detect) Imaging Data Chest x-ray: Radiologist's Impression: PROCEDURE: XR CHEST 2V INDICATIONS: cough x 10 days TECHNIQUE: 2 views of the chest were acquired. COMPARISON: None. FINDINGS: Surgical changes and devices: None. Lungs and pleura: Lungs are clear. No pleural effusions or pneumothorax. Mediastinum: Mediastinal contours are normal. Heart size is normal. Bones and chest wall: No suspicious bony abnormalities. Soft tissues appear unremarkable. IMPRESSION: No evidence acute pulmonary process. Dictated by: Edson Mack M.D. on 08/15/2023 at 12:22 MDM Narrative Medical decision making narrative: Patient healthy 60-year-old male presents today with ongoing upper respiratory like symptoms. He has pretty productive cough and bronchospastic like cough. But overall appears well and nontoxic. He is vitals are stable, not requiring oxygen Blood work has been reviewed no clinical abnormalities, BNP is negative, troponin negative, respiratory panel positive for human metapneumovirus Chest x-ray reviewed no acute cardiopulmonary process Respiratory saw and evaluated patient nebulizer treatment significantly for he was given flutter valve to help with secretions. At this time no need for supportive care only Discharge Plan Departure Patient Disposition: Home Clinical Impression: Acute respiratory infection Instructions: DI for Viral Upper Respiratory Infection -- Adult Activity Restrictions/Additional Instructions: *You have been diagnosed with upper respiratory infection *What to do: At this time you have been diagnosed with human metapneumovirus. Supportive care only. Please try and stay hydrated this will help. Use flutter valve as instructed by respiratory therapy *Continue to take medications as directed Codeine with guaifenesin syrup for severe coughing especially at night *Follow up with your primary care provider in 2-3 days or call [phone] *Return to ER if you should have increasing shortness of breath chest pain confusion [or] any new, worsening or concerning symptoms CONTROLLED SUBSTANCE DISCHARGE (Narcotoic/benzodiazepine/Flexeril/Phenergan) 1. You have been prescribed narcotic medications, it does have acetaminophen/Tylenol/paracetamol in it, DO NOT TAKE MORE THAN 4,00mg in 24 hours of Tylenol. TRAMADOL DOES NOT CONTAIN TYLENOL 2. Please understand that we cannot provide further refills of narcotics, benzodiazepines or controlled substances through the ED and her pain management will need to be through your provider. 3. While on these medications you cannot drive or operate heavy machinery. 4. You cannot sign legal documents or perform any duties such as this. 5. As long as you're taking opiate pain medications he should also be taking a stool softener such as Colace, Dulcolax, MiraLAX or prune juice, to help avoid constipation. Prescriptions: New codeine-guaifenesin 10-200 mg/5 mL liquid 5 ml PO Q6H PRN (Reason: cough) Qty: 100 0RF No Action rosuvastatin 40 mg tablet See Rx Instructions .ROUTE .COMPLEX Qty: 90 3RF Dose Instruction: TAKE 1 TABLET DAILY Rx Instructions: TAKE 1 TABLET DAILY amlodipine 2.5 mg tablet 2.5 mg PO BEDTIME Qty: 90 3RF benzonatate 200 mg capsule 200 mg PO TID Qty: 30 0RF guaifenesin 1,200 mg tablet extended release 12hr 1,200 mg PO BID Qty: 30 0RF fluticasone propionate [Flonase Allergy Relief] 50 mcg/actuation spray,suspension 1 spray intranasal DAILY Qty: 16 0RF Rx Instructions: administer into each nostril Referrals: Edward Steele DO [Primary Care Provider] - Stand Alone Forms: Patient Portal/API
[2023-08-15] MEDS: ALBUTEROL/IPRATROPIUM 3 ML AMPUL INH (11:34)
[2023-08-15 11:47] LABS: Add Manual Diff / Slide Review NO; Basophils Absolute Auto 100 /uL (0-100); Basophils Percent Auto 0.9 % (0-2); Eosinophils Absolute Auto 200 /uL (0-450); Eosinophils Percent Auto 2.8 % (2-4); Hemoglobin 15.2 g/dL (13.5-17.5); Lymphocytes Absolute Auto 1400 /uL (1100-4500); Lymphocytes Percent Auto 23.3 % (25-40); Mean Corpuscular HGB Conc 34.4 % (30-36); Mean Corpuscular Hemoglobin 33.3 PG (26-34); Mean Corpuscular Volume 96.6 fL (80-100); Monocytes Absolute Auto 900 /uL (0-900); Monocytes Percent Auto 15.2 % (3-14); Neutrophils Absolute Auto 3400 /uL (1500-7000); Neutrophils Percent Auto 57.8 % (50-75); Platelet Count 199 X10^3/uL (150-400); Red Blood Cell Count 4.56 X10^6/uL (4.5-5.9); Red Cell Distribution Width 12.5 % (11.6-14.8); White Blood Cell Count 5.9 X10^3/uL (4.5-11.0)
[2023-08-15 11:56] LABS: Alanine Aminotransferase 17 IU/L (<50); Albumin 4.1 g/dL (3.5-5.0); Albumin Globulin Ratio 1.2 (1.0-2.8); Alkaline Phosphatase 64 U/L (38-126); Aspartate Aminotransferase 30 IU/L (17-59); BUN Creatinine Ratio 11.8 (6-22); Bilirubin Total 0.6 mg/dL (0.2-1.3); Blood Urea Nitrogen 10 mg/dL (9-20); Calcium 8.7 mg/dL (8.4-10.2); Carbon Dioxide 25 mmol/L (22-32); Chloride 101 mmol/L (98-107); Creatine Kinase 79 U/L (55-170); Estimated Glomerular Filt Rate > 60 mL/min (>60); Globulin 3.4 g/dL (1.7-4.1); Glucose 82 mg/dL (80-110); Potassium 4.2 mmol/L (3.4-5.1); Sodium 131 mmol/L (137-145); Total Protein 7.5 g/dL (6.3-8.2)
[2023-08-15 12:06] LABS: Troponin I < 0.012 ng/mL (0.01-0.034)
--- NOTE | 2023-08-15 12:09 | PC.NURSE ---
Pt reports still feeling wheezy. notified. At this time pt lung sounds are clear.
[2023-08-15 12:21] LABS: HEMOLYSIS 17 (0-50); NT-proBNP (BNP-Adult 18+) 115 pg/mL (<125)
--- NOTE | 2023-08-15 12:48 | PC.NURSE ---
RT contacted for eval; RT stated they will assess pt.
[2023-08-15 12:49] LABS: Adenovirus Not Detected (Not Detect); B. parapertussis Not Detected (Not Detecte); Bordetella pertussis Not Detected (Not Detect); Chlamydophila pneumoniae Not Detected (Not Detect); Coronavirus 229E Not Detected (Not Detect); Coronavirus HKU1 Not Detected (Not Detect); Coronavirus NL 63 Not Detected (Not Detect); Coronavirus OC43 Not Detected (Not Detect); Human Metapneumovirus Detected (Not Detect); Human Rhinovirus/Enterovirus Not Detected (Not Detect); Influenza A Not Detected (Not Detect); Influenza B Not Detected (Not Detect); Mycoplasma pneumoniae Not Detected (Not Detect); Parainfluenza Virus 1 Not Detected (Not Detect); Parainfluenza Virus 2 Not Detected (Not Detect); Parainfluenza Virus 3 Not Detected (Not Detect); Parainfluenza Virus 4 Not Detected (Not Detect); Respiratory Syncytial Virus Not Detected (Not Detect); SARS- CoV-2 Not Detected (Not Detecte)
[2023-08-15 13:13] VITALS: PULSE 89; RESP 16; O2SAT 94
== END 2023-08-15 13:36 | disposition home or self-care (01) ==
PROVIDERS: Emergency Provider Emergency Medicine; PCP Family Medicine
DX: J06.9 Acute upper respiratory infection, unspecified (principal); R07.9 Chest pain, unspecified; Z20.822 Contact with and (suspected) exposure to COVID-19
CPT/HCPCS: 36415; 71046; 80053; 82550; 83880; 84484; 85025; 87633; 94667; 99284

== ENCOUNTER → 2024-02-04 08:09 | Outpatient (CLI) | payer MEDICARE, OTHER, SELFPAY ==
--- NOTE | 2024-02-04 08:10 | DI.ECHO.S_ITS ---
[facility]+ [facility] : : [address] : : [place] : : [id number] : : Phone: [phone] Echocardiogram Report + + :Name: MURIEL CABRERA Study Date: 02/04/2024 Height: 73 in : :Hospital ReadingLocation: [facility] Weight: 194 lb : : Gender: Male BSA: 2.1 m2 : :: 1955 Age: 68 yrs BP: 137/89 mmHg: :Reason For Study: Mitral Valve- Regurgitation : : Performed By: Niru Chopra : :Referring: GIORGIO CAPELLAN : + + Interpretation Summary Left ventricular ejection fraction is estimated to be 50%. This is decrease from 60-65% compared to the previous study. Distal inferolateral hypokinesis There is moderate mitral regurgitation. Compared to the prior echo study, there has been no change in the severity of mitral regurgitation. There is mild tricuspid regurgitation. Procedure: A two-dimensional transthoracic echocardiogram with color flow and Doppler was performed. The study quality was technically adequate. Comparison is made with the echocardiogram of 01/27/2023. The patient was in sinus rhythm with heart rates between 76-83 bpm during the exam. Left Ventricle: The left ventricle is normal in size and wall thickness. This is decrease from 60-65% compared to the previous study. Left ventricular ejection fraction is estimated to be 50%. Distal inferolateral hypokinesis. Diastolic parameters suggest a relaxation abnormality of the left ventricle, consistent with probable normal filling pressures. Right Ventricle: The right ventricle is normal in size and function. Atria: The left atrial size is normal. The right atrium is borderline dilated. There is no Doppler evidence for an interatrial shunt. Mitral Valve: The mitral valve leaflets appear normal. There is no evidence of stenosis, fluttering, or prolapse. There is no mitral valve stenosis. There is moderate mitral regurgitation. Compared to the prior echo study, there has been no change in the severity of mitral regurgitation. Aortic Valve: The aortic valve is trileaflet. The aortic valve opens well. The aortic valve is slightly calcified. There is no aortic valve stenosis. No aortic regurgitation is present. Tricuspid Valve: The tricuspid valve leaflets are thin and pliable. There is mild tricuspid regurgitation. The right ventricular systolic pressure is estimated to be at least 16 mmHg based on an estimated right atrial pressure of 3 mm Hg. Pulmonic Valve: The pulmonic valve leaflets are thin and pliable; valve motion is normal. There is a trace or physiologic amount of pulmonic regurgitation. Great Vessels: The aortic root is normal size. The ascending aorta is at the upper limits of normal in size. The aortic arch is normal in size. The pulmonary artery is normal size. The IVC is of normal diameter and collapses greater than 50% with a sniff. This suggests a low right atrial pressure of 3 mm Hg. Pericardium/ Pleura There is an anterior echo-free space consistent with a fat pad. There is no pericardial effusion. There is no pleural effusion. MMode/2D Measurements & Calculations LVIDd: 4.0 cm LVOT diam: 2.3 cm LVIDs: 2.8 cm Ao root diam: 3.5 cm FS: 30.4 % asc Aorta Diam: 3.8 cm IVSd: 1.1 cm Ao Arch Diam (Prox Trans): 2.8 cm LVPWd: 0.86 cm LV burks. diameter/BSA (cm/m^2): 1.9 LV sys. diameter/BSA (cm/m^2): 1.3 LA A2 area: 22.9 cm2 RA long axis: 5.4 cm LA A4 area: 16.4 cm2 RA area: 20.1 cm2 LA length (vol): 5.3 cm RA vol: 64.1 ml LA vol: 60.7 ml RA : 30.2 ml/m2 LA vol index: 28.6 ml/m2 IVC diam: 1.5 cm RVD1 (basal): 3.9 cm LVAd ap4: 29.8 cm2 RVD2 (mid): 3.1 cm LVAs ap4: 19.4 cm2 TAPSE: 2.2 cm LVLs ap4: 6.9 cm LVAd ap2: 29.5 cm2 LVLd ap2: 8.0 cm LVAs ap2: 20.0 cm2 LVLs ap2: 6.9 cm Doppler Measurements & Calculations Ao V2 max: 132.5 cm/sec LVOT Max Don: 79.7 cm/sec Ao V2 mean: 96.8 cm/sec LV V1 max P.5 mmHg Ao max P.0 mmHg LV V1 VTI: 17.1 cm Ao mean P.1 mmHg XAVIER(I,D): 2.8 cm2 Ao V2 VTI: 25.2 cm XAVIER(V,D): 2.5 cm2 sev ratio: 0.68 XAVIER indexed to BSA (cm^2/m^2): 1.3 MV E max don: 34.0 cm/sec TR max don: 201.7 cm/sec MV A max don: 57.1 cm/sec TR max P.3 mmHg MV E/A: 0.60 PA V2 max: 59.6 cm/sec Med Peak E' Don: 6.2 cm/sec PA V2 mean: 38.0 cm/sec E/E' med: 5.5 PA mean P.68 mmHg Lat Peak E' Don: 8.5 cm/sec PA pr(Accel): 20.8 mmHg E/E' lat: 4.0 E/e' average: 4.8 MV dec time: 0.19 sec MR ERO: 0.09 cm2 MR VTI: 157.0 cm MR PISA: 1.4 cm2 MR flow rate: 51.7 cm3/sec MR PISA radius: 0.47 cm SV(LVOT): 71.5 ml Reading Physician:01:30 PM
== END ==
PROVIDERS: Family Provider Family Medicine; PCP Family Medicine; Referring Provider Family Medicine; Visit Provider Family Medicine
DX: I08.1 Rheumatic disorders of both mitral and tricuspid valves (principal)
CPT/HCPCS: 93306

== ENCOUNTER → 2024-06-14 08:42 | Outpatient (CLI) | payer MEDICARE, OTHER, SELFPAY ==
[2024-06-14 09:53] LABS: Alanine Aminotransferase 20 IU/L (<50); Albumin 4.6 g/dL (3.5-5.0); Albumin Globulin Ratio 1.5 (1.0-2.8); Alkaline Phosphatase 63 U/L (38-126); Aspartate Aminotransferase 27 IU/L (17-59); BUN Creatinine Ratio 8.5 (6-22); Bilirubin Total 0.6 mg/dL (0.2-1.3); Blood Urea Nitrogen 9 mg/dL (9-20); Carbon Dioxide 28 mmol/L (22-32); Chloride 104 mmol/L (98-107); Cholesterol 221 mg/dL (140-199); Estimated Glomerular Filt Rate > 60 mL/min (>60); Globulin 3.1 g/dL (1.7-4.1); Glucose 100 mg/dL (80-110); HDL Cholesterol 66 mg/dL (40-60); HEMOLYSIS < 15 (0-50); LDL Cholesterol Calculated 121 mg/dL (<100); Potassium 4.5 mmol/L (3.4-5.1); Sodium 138 mmol/L (137-145); Total Protein 7.7 g/dL (6.3-8.2); Triglycerides 168 mg/dL (35-150)
[2024-06-14 10:22] LABS: Prostate Specific Antigen Scrn 1.38 ng/mL (0.1-4.0)
== END ==
PROVIDERS: Family Provider Family Medicine; PCP Family Medicine; Referring Provider Family Medicine; Visit Provider Family Medicine
DX: I10 Essential (primary) hypertension (principal); Z12.5 Encounter for screening for malignant neoplasm of prostate; I34.0 Nonrheumatic mitral (valve) insufficiency; E78.5 Hyperlipidemia, unspecified
CPT/HCPCS: 36415; 80053; 80061; G0103

== ENCOUNTER → 2024-08-23 08:07 | Outpatient (CLI) | payer MEDICARE, OTHER, SELFPAY ==
[2024-08-23 08:54] LABS: Cholesterol 181 mg/dL (140-199); HDL Cholesterol 83 mg/dL (40-60); LDL Cholesterol Calculated 86 mg/dL (<100); Triglycerides 58 mg/dL (35-150)
== END ==
PROVIDERS: Family Provider Family Medicine; PCP Family Medicine; Referring Provider Family Medicine; Visit Provider Family Medicine
DX: E78.2 Mixed hyperlipidemia (principal)
CPT/HCPCS: 36415; 80061

== ENCOUNTER 2025-02-05 12:53 | Emergency (ER) | payer MEDICARE, OTHER, SELFPAY ==
--- NOTE | 2025-02-05 13:03 | DI.CT.S_ITS ---
PROCEDURE: CT ABDOMEN PELVIS W CON INDICATIONS: abd pain TECHNIQUE: After the administration of intravenous contrast, axial sections acquired from the lung bases to the pubic symphysis. Coronal and sagittal reformats were performed. For radiation dose reduction, the following was used: automated exposure control, adjustment of mA and/or kV according to patient size. COMPARISON: None. FINDINGS: Image quality: Diagnostic. Lower Chest: No significant findings. ABDOMEN: Liver: No solid mass. Diffuse fatty liver infiltration is noted. Gallbladder: No radiopaque gallstones or wall thickening. Biliary ducts: No biliary dilation. Pancreas: No ductal dilation. Spleen: Size is within normal limits. Adrenal Glands: No adrenal nodules. Kidneys and Ureters: No hydronephrosis. No solid mass. No complex renal cystic lesion which requires follow up. Stomach and Bowel: Extensive distal colonic diverticulosis is seen, without jayjay findings of active diverticulitis. The more proximal colon is within normal limits. No dilated loops of small bowel are seen. Peritoneum: No abnormal intraperitoneal fluid. No free air. Ventral Wall: No significant ventral hernia. Abdominal Nodes: No retroperitoneal or mesenteric adenopathy by size criteria. Vessels: Aorta and inferior vena cava are normal in size. Atherosclerotic calcification is noted. PELVIS: Pelvic Organs: Unremarkable. Bladder: No bladder wall thickening, accounting for underdistention. Pelvic Nodes: No enlarged lymph nodes. Miscellaneous: Moderate bilateral fat containing inguinal hernias are seen. Bones: No aggressive osseous abnormality. Age-appropriate bony degenerative changes are seen. Mild levoconvex scoliotic curvature is noted. IMPRESSION: Extensive distal colonic diverticulosis is seen, without findings of active diverticulitis. Additional findings: Fatty liver infiltration Moderate bilateral fat containing inguinal hernias Dictated by: Jermaine Nguyen M.D. on 02/05/2025 at 12:55 Approved by: Jermaine Nguyen M.D. on 02/05/2025 at 12:58
[2025-02-05 13:09] VITALS: O2SAT 95
[2025-02-05 13:10] VITALS: BP 154/79; PULSE 107; O2SAT 95
[2025-02-05 13:14] VITALS: BP 154/79; PULSE 105; RESP 18; TEMP 36.9; O2SAT 98; BMI 25.6
--- NOTE | 2025-02-05 13:17 | EKG_ITS ---
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
[2025-02-05 13:23] LABS: Add Manual Diff / Slide Review NO; Hematocrit 44.6 % (41-53); Hemoglobin 15.4 g/dL (13.5-17.5); Lymphocytes Absolute Auto 1600 /uL (1100-4500); Mean Corpuscular HGB Conc 34.6 % (30-36); Mean Corpuscular Hemoglobin 33.6 PG (26-34); Mean Corpuscular Volume 97.1 fL (80-100); Platelet Count 236 X10^3/uL (150-400)
[2025-02-05 13:35] VITALS: PULSE 98; RESP 21; O2SAT 97
[2025-02-05] MEDS: LACTATED RINGERS 1,000 ML 1000 ML IV (13:35)
[2025-02-05 13:36] LABS: Alanine Aminotransferase 29 IU/L (<50); Albumin 4.5 g/dL (3.5-5.0); Albumin Globulin Ratio 1.3 (1.0-2.8); Alkaline Phosphatase 70 U/L (38-126); Blood Urea Nitrogen 13 mg/dL (9-20); Calcium 9.3 mg/dL (8.4-10.2); Carbon Dioxide 21 mmol/L (22-32); Chloride 105 mmol/L (98-107); Estimated Glomerular Filt Rate > 60 mL/min (>60); Globulin 3.5 g/dL (1.7-4.1); Glucose 155 mg/dL (70-99); HEMOLYSIS 25 (0-50); Lipase 55 U/L (23-300); Potassium 4.0 mmol/L (3.4-5.1); Sodium 135 mmol/L (137-145); Total Protein 8.0 g/dL (6.3-8.2)
[2025-02-05 13:37] VITALS: BP 140/77; PULSE 96; RESP 29; O2SAT 94
--- NOTE | 2025-02-05 13:49 | ED.ABDPAIN ---
HPI - Abdominal Pain General Chief Complaint: Abdominal Pain Stated Complaint: Abdominal pain Time Seen by Provider: 02/05/25 13:03 Source: patient Mode of arrival: Ambulatory History of Present Illness HPI narrative: 69-year-old gentleman history of hypertension, R sided inguinal hernia repair 1989 presents with right lower quadrant suprapubic region pain has been ongoing for the past the despite taking ibuprofen with no significant relief of symptoms seen by PCP told to take it easy but sharp pain makes him drop to his knees. Patient denies chest pain, shortness of breath, rectal bleeding, hematuria, nausea, vomiting, diarrhea, constipation. He is scheduled for upcoming colonoscopy again as he had previous polyps in the past. Other than what is stated 14 point review of system is negative. Related Data Previous Rx's ?Medication ?Instructions ?Recorded amlodipine 2.5 mg tablet 2.5 mg PO BEDTIME #90 tabs 06/14/24 rosuvastatin 40 mg tablet See Rx Instructions .Route 06/14/24 .COMPLEX #90 tabs hydrocodone 5 mg-acetaminophen 325 1 tab PO Q4-6H PRN pain #20 tabs 02/05/25 mg tablet Allergies Allergy/AdvReac Type Severity Reaction Status Date / Time No Known Drug Allergies Allergy Verified 01/25/25 10:38 Review of Systems Review of Systems ROS Unobtainable: All systems reviewed & are unremarkable except as noted in HPI and below Patient History Medical History Macular degeneration URI (upper respiratory infection) Hypertension Medicare annual wellness visit, subsequent Well adult exam Hepatitis A (~1989) Adopted Hyperlipidemia Benign neoplasm of adenomatous polyp (2015) Colon polyp (2010) Surgical History History of right inguinal hernia repair History of colonoscopy with polypectomy History of hernia repair H/O colonoscopy (2010) Social History household members: spouse and significant other alcohol intake: current Smoking Status: Never smoker alcohol intake frequency: 3 or more drinks per day Alcohol type: beer Exam Narrative Exam Narrative: GENERAL: [69] year old patient appears stated age. Well-developed patient, in mild distress. HEAD: Atraumatic. Normocephalic. EYES: Pupils equal round and reactive. Extraocular motions intact. No scleral icterus. No injection or drainage. ENT: Nose without bleeding, purulent drainage. Throat without erythema, tonsillar hypertrophy or exudate. Airway patent. NECK: Trachea midline. Non tender CARDIOVASCULAR: Regular rate and rhythm without murmurs, gallops, or rubs. RESPIRATORY: Clear to auscultation. Breath sounds equal bilaterally. No wheezes, rales, or rhonchi. GASTROINTESTINAL: Abdomen soft, non-tender, nondistended. EXTREMITIES: No edema or joint tenderness. BACK: Nontender without deformity or crepitance. No flank tenderness. NEURO: AOx3. SKIN: No rash or erythema of visible areas Initial Vital Signs Initial Vital Signs: Vital Signs Temperature 98.4 F 02/05/25 13:14 Pulse Rate 105 H 02/05/25 13:14 Respiratory Rate 18 02/05/25 13:14 Blood Pressure 154/79 H 02/05/25 13:14 Pulse Oximetry 98 02/05/25 13:14 Oxygen Delivery Method Room Air 02/05/25 13:14 Course Orders Ordered: ED Orders 02/05/25 13:03 CT abdomen pelvis w con Stat EKG-12 Lead Stat 02/05/25 13:15 Complete Blood Count AUTO DIFF Stat Comprehensive Metabolic Panel Stat Lipase Stat Lactated Ringer's (Lactated Ringers) 1,000 mls @ 1,000 mls/hr IV BOLUS ONE Stop: 02/05/25 14:02 Last Admin: 02/05/25 13:35 Dose: 1,000 mls/hr Documented By: Ondansetron HCl (Ondansetron 4 Mg/2 Ml Inj) 4 mg IV NOW PRN PRN Reason: Nausea And Vomiting Ondansetron HCl (Ondansetron 4 Mg Odt) 4 mg PO NOW PRN PRN Reason: Nausea And Vomiting Vital Signs Vital signs: Vital Signs - 8 hr 02/05/25 13:14 Temperature 98.4 F Pulse Rate 105 H Respiratory Rate 18 Blood Pressure 154/79 H Pulse Oximetry 98 Oxygen Delivery Method Room Air MDM - Abdominal Pain Lab Data 02/05/25 13:15 02/05/25 13:15 Labs: Lab Results 02/05/25 Range/Units 13:15 WBC 7.2 (4.5-11.0) X10^3/uL RBC 4.59 (4.5-5.9) X10^6/uL Hgb 15.4 (13.5-17.5) g/dL Hct 44.6 (41-53) % MCV 97.1 (80-100) fL MCH 33.6 (26-34) PG MCHC 34.6 (30-36) % RDW 12.8 (11.6-14.8) % Plt Count 236 (150-400) X10^3/uL Neut % (Auto) 64.9 (50-75) % Lymph % (Auto) 22.5 L (25-40) % [place] % (Auto) 10.5 (3-14) % Eos % (Auto) 1.1 L (2-4) % Baso % (Auto) 1.0 (0-2) % Neut # (Auto) 4700 (7076-8132) /uL Lymph # (Auto) 1600 (1072-5622) /uL [place] # (Auto) 800 (0-900) /uL Eos # (Auto) 100 (0-450) /uL Baso # (Auto) 100 (0-100) /uL Sodium 135 L (137-145) mmol/L Potassium 4.0 (3.4-5.1) mmol/L Chloride 105 (98-107) mmol/L Carbon Dioxide 21 L (22-32) mmol/L BUN 13 (9-20) mg/dL Creatinine 0.81 (0.66-1.25) mg/dL Estimated GFR > 60 (>60) mL/min BUN/Creatinine Ratio 16.0 (6-22) Glucose 155 H (70-99) mg/dL Calcium 9.3 (8.4-10.2) mg/dL Total Bilirubin 0.6 (0.2-1.3) mg/dL AST 36 (17-59) IU/L ALT 29 (<50) IU/L Alkaline Phosphatase 70 (38-126) U/L Total Protein 8.0 (6.3-8.2) g/dL Albumin 4.5 (3.5-5.0) g/dL Globulin 3.5 (1.7-4.1) g/dL Albumin/Globulin Ratio 1.3 (1.0-2.8) Lipase 55 (23-300) U/L Imaging Data CT scan - abdomen/pelvis: Radiologist's Impression: [address] [address] [address] Scan Report Signed Patient: Aldair Fox MR#: [id number] : 1955 Acct:[id number] Age/Sex: 69 / M Date of Service: 02/05/25 Loc: ED Accession Number: [id number] Procedure: CT abdomen pelvis w con Ordering Provider: Osbaldo Mayes D.O. PROCEDURE: CT ABDOMEN PELVIS W CON INDICATIONS: abd pain TECHNIQUE: After the administration of intravenous contrast, axial sections acquired from the lung bases to the pubic symphysis. Coronal and sagittal reformats were performed. For radiation dose reduction, the following was used: automated exposure control, adjustment of mA and/or kV according to patient size. COMPARISON: None. FINDINGS: Image quality: Diagnostic. Lower Chest: No significant findings. ABDOMEN: Liver: No solid mass. Diffuse fatty liver infiltration is noted. Gallbladder: No radiopaque gallstones or wall thickening. Biliary ducts: No biliary dilation. Pancreas: No ductal dilation. Spleen: Size is within normal limits. Adrenal Glands: No adrenal nodules. Kidneys and Ureters: No hydronephrosis. No solid mass. No complex renal cystic lesion which requires follow up. Stomach and Bowel: Extensive distal colonic diverticulosis is seen, without jayjay findings of active diverticulitis. The more proximal colon is within normal limits. No dilated loops of small bowel are seen. Peritoneum: No abnormal intraperitoneal fluid. No free air. Ventral Wall: No significant ventral hernia. Abdominal Nodes: No retroperitoneal or mesenteric adenopathy by size criteria. Vessels: Aorta and inferior vena cava are normal in size. Atherosclerotic calcification is noted. PELVIS: Pelvic Organs: Unremarkable. Bladder: No bladder wall thickening, accounting for underdistention. Pelvic Nodes: No enlarged lymph nodes. Miscellaneous: Moderate bilateral fat containing inguinal hernias are seen. Bones: No aggressive osseous abnormality. Age-appropriate bony degenerative changes are seen. Mild levoconvex scoliotic curvature is noted. IMPRESSION: Extensive distal colonic diverticulosis is seen, without findings of active diverticulitis. ECG Data Interpretation: NSR HR 100 IN 158 QRS [address]-t wave change Unchanged from 10/30/20 MDM Narrative Medical decision making narrative: Vital signs, nurse triage note, medication list, previous ER visits, and all imaging studies reviewed. WBC 7.2 hemoglobin 15.4 platelet 236 sodium 135 potassium 4.0 chloride 105 CO2 21 BUN 13 creatinine 0.81 glucose 155 LFTs normal lipase [address] abdomen and pelvis showed extensive distal colonic diverticulosis seen without findings of active diverticulitis. Fatty infiltration moderate bilateral fat containing inguinal hernia. Differential diagnosis includes appendicitis, constipation, strangulated, incarcerated hernia. DC home on hydrocodone rx Discharge Plan Departure Patient Disposition: Home Clinical Impression: Diverticulosis Inguinal hernia Qualifiers: Obstruction and gangrene presence: without obstruction or gangrene Laterality: bilateral Recurrence: not specified as recurrent Qualified Code(s): K40.20 - Bilateral inguinal hernia, without obstruction or gangrene, not specified as recurrent Instructions: DI for Groin Hernia Activity Restrictions/Additional Instructions: Return with new or worsening symptoms. Take medicines as directed. Follow up with PCP in 1-2 weeks if no improvement in symptoms. Prescriptions: New hydrocodone-acetaminophen 5-325 mg tablet 1 tab PO Q4-6H PRN (Reason: pain) Qty: 20 0RF No Action amlodipine 2.5 mg tablet 2.5 mg PO BEDTIME Qty: 90 3RF rosuvastatin 40 mg tablet See Rx Instructions .ROUTE .COMPLEX Qty: 90 3RF Dose Instruction: TAKE 1 TABLET DAILY Rx Instructions: TAKE 1 TABLET DAILY Referrals: Edward Steele DO [Primary Care Provider, Family Practice] Stand Alone Forms: Patient Portal/API
[2025-02-05 14:00] VITALS: BP 135/81; PULSE 91; RESP 27; O2SAT 95
== END 2025-02-05 14:13 | disposition home or self-care (01) ==
PROVIDERS: Emergency Provider Family Medicine; Family Provider Family Medicine; PCP Family Medicine
DX: K57.90 Diverticulosis of intestine, part unspecified, without perforation or abscess without bleeding (principal); K40.20 Bilateral inguinal hernia, without obstruction or gangrene, not specified as recurrent
CPT/HCPCS: 36415; 74177; 80053; 81003; 83690; 85025; 93005; 93010; 96360; 99284; Q9967

== ENCOUNTER → 2025-02-07 06:48 | Outpatient (CLI) | payer MEDICARE, OTHER, SELFPAY ==
--- NOTE | 2025-02-07 06:49 | DI.ECHO.S_ITS ---
Name: MURIEL CABRERA Study Date: 02/07/2025 Height: 73 in : :[facility] ReadingLocation: Weight: 194 lb : : Gender: Male BSA: 2.1 m2 : :: 1955 Age: 69 yrs BP: 129/94 mmHg: :Reason For Study: Mitral Insufficiency : :Ordering Physician: GIORGIO CAPELLAN Performed By: Rubén Calixto : :Referring: GIORGIO CAPELLAN : + + Interpretation Summary The patient was in normal sinus rhythm during the exam. The left ventricle is normal in size. The ejection fraction is estimated to be 60-65%. Compared to the prior exam, the left ventricular function is improved. Previous LVEF about 50% with distal inferior lateral hypokinesis. There are no focal wall motion abnormalities. The right ventricle is normal in size and function. There is moderate mitral regurgitation. Compared to the prior echo study, there has been no change in the severity of mitral regurgitation. The IVC is of normal diameter and collapses greater than 50% with a sniff. This suggests a low right atrial pressure of 3 mm Hg. Procedure: A two-dimensional transthoracic echocardiogram with color flow and Doppler was performed. The study quality was technically adequate. Comparison is made with the echocardiogram of 02/04/2024. The patient was in normal sinus rhythm during the exam. The patient had occasional PVCs during the exam. Left Ventricle: The left ventricle is normal in size. Left ventricular wall thickness is mildly increased. There is no thrombus. Overall left ventricular systolic function is preserved. The ejection fraction is estimated to be 60- 65%. Compared to the prior exam, the left ventricular function is improved. There are no focal wall motion abnormalities. Grade I diastolic dysfunction with normal left atrial pressure. Right Ventricle: The right ventricle is normal in size and function. Atria: The left atrial size is normal. Right atrial size is normal. There is no Doppler evidence for an interatrial shunt. Mitral Valve: The mitral valve leaflets appear to open well. There is mild mitral annular calcification. There is no mitral valve stenosis. There is moderate mitral regurgitation. Compared to the prior echo study, there has been no change in the severity of mitral regurgitation. Aortic Valve: The aortic valve is trileaflet. The aortic valve opens well. The aortic valve is slightly calcified. There is no aortic valve stenosis. No aortic regurgitation is present. Tricuspid Valve: The tricuspid valve leaflets are thin and pliable. There is trace tricuspid regurgitation. Pulmonary artery pressures cannot be estimated because of the lack of a measurable TR jet velocity but the IVC suggests a CVP of around 3 mmHg. Pulmonic Valve: The pulmonic valve is not well seen, but is grossly normal. There is trace pulmonic regurgitation. Great Vessels: The aortic root is normal size. The ascending aorta is normal in size. The aortic arch could not be visualized. The IVC is of normal diameter and collapses greater than 50% with a sniff. This suggests a low right atrial pressure of 3 mm Hg. Pericardium/ Pleura There is no pericardial effusion. MMode/2D Measurements & Calculations LVIDd: 4.0 cm LVOT diam: 2.1 cm LVIDs: 2.9 cm Ao root diam: 3.5 cm FS: 28.3 % asc Aorta Diam: 3.7 cm IVSd: 1.3 cm LVPWd: 1.2 cm LV burks. diameter/BSA (cm/m^2): 1.9 LV sys. diameter/BSA (cm/m^2): 1.3 LA A2 area: 21.2 cm2 RA long axis: 5.2 cm LA A4 area: 20.5 cm2 RA area: 16.7 cm2 LA length (vol): 5.8 cm RA vol: 45.5 ml LA vol: 63.7 ml RA : 21.4 ml/m2 LA vol index: 30.0 ml/m2 IVC diam: 1.2 cm RVD1 (basal): 2.8 cm RVD2 (mid): 2.3 cm TAPSE: 1.9 cm Doppler Measurements & Calculations Ao V2 max: 115.6 cm/sec LVOT Max Don: 97.7 cm/sec Ao V2 mean: 83.9 cm/sec LV V1 max P.8 mmHg Ao max P.3 mmHg LV V1 VTI: 18.2 cm Ao mean P.1 mmHg XAVIER(I,D): 2.8 cm2 Ao V2 VTI: 21.6 cm XAVIER(V,D): 2.8 cm2 sev ratio: 0.85 XAVIER indexed to BSA (cm^2/m^2): 1.3 MV E max don: 51.3 cm/sec PA V2 max: 101.6 cm/sec MV A max don: 66.4 cm/sec PA V2 mean: 65.1 cm/sec MV E/A: 0.77 PA mean P.0 mmHg Med Peak E' Don: 8.2 cm/sec PA pr(Accel): 44.7 mmHg E/E' med: 6.2 Lat Peak E' Don: 9.5 cm/sec E/E' lat: 5.4 E/e' average: 5.8 MV dec time: 0.14 sec SV(LVOT): 61.1 ml
== END ==
LOC: ECHO 06:49
PROVIDERS: Family Provider Family Medicine; PCP Family Medicine; Referring Provider Family Medicine; Visit Provider Family Medicine
DX: I34.81 Nonrheumatic mitral (valve) annulus calcification (principal); I34.0 Nonrheumatic mitral (valve) insufficiency
CPT/HCPCS: 93306

== ENCOUNTER → 2025-03-07 06:48 | Outpatient (CLI) | payer MEDICARE, OTHER, SELFPAY ==
--- NOTE | 2025-03-07 06:50 | DI.CT.S_ITS ---
PROCEDURE: CT ANGIO HEAD AND NECK INDICATIONS: near syncopal episodes TECHNIQUE: After the administration of intravenous contrast, 1 mm thick sections acquired from the aortic arch through the [place] of [place]. MIP reformats of the arterial vasculature were utilized. For radiation dose reduction, the following was used: automated exposure control, adjustment of mA and/or kV according to patient size. COMPARISON: None. FINDINGS: Image quality: Diagnostic. Cerebral CT Angiogram: Internal carotid arteries: Atherosclerotic plaque in both proximal internal carotid arteries noted without stenosis Anterior cerebral arteries: Unremarkable. No significant stenosis. No occlusion. No aneurysm. Middle cerebral arteries: Unremarkable. No significant stenosis. No occlusion. No aneurysm. Posterior cerebral arteries: Unremarkable. No significant stenosis. No occlusion. No aneurysm. Basilar artery: Unremarkable. No significant stenosis. No occlusion. No aneurysm. Vertebral arteries: Unremarkable as visualized. Dural venous sinuses: Unremarkable given phase of enhancement. Other: Arterial phase appearance of the brain parenchyma is unremarkable. Neck CT Angiogram: Internal carotid arteries: Unremarkable. No significant stenosis. No dissection or occlusion. Common carotid arteries: Unremarkable. No significant stenosis. No dissection or occlusion. External carotid arteries: Unremarkable. No occlusion. Vertebral arteries: Diminutive right vertebral artery. Left vertebral artery dominance Aortic Arch and Mediastinum: Partially visualized aortic arch unremarkable without evidence of aneurysm. Origins of the great vessels unremarkable. 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 Approved by: Damian Zaidi M.D. on 03/07/2025 at 18:16
--- NOTE | 2025-03-07 06:50 | DI.NM.S_ITS ---
PROCEDURE: NM EXERCISE TREADMILL NON NUC COMPARISON: None. INDICATIONS: Near syncopal episodes; dizziness FINDINGS: Rest ECG sinus rhythm. Paulo protocol 6:07, maximum heart rate 149 bpm (99% peak predicted), peak blood pressure 150/90, 7.0 METS, MAYE +11%. Exercise ECG sinus tachycardia, no ST segment changes, rare PVCs. The patient did not report exercise-induced chest discomfort but did report dizziness 4 minutes into exercise. IMPRESSION: Low risk study. No evidence of exercise-induced ischemia on ECG. Normal hemodynamic response. Slightly reduced exercise capacity. Dictated by: Shawanda Huang D.O. on 03/07/2025 at 16:50 Approved by: Shawanda Huang D.O. on 03/07/2025 at 16:53
== END ==
LOC: CT 06:49
PROVIDERS: Family Provider Family Medicine; PCP Family Medicine; Referring Provider Family Medicine; Visit Provider Physician Assistant
DX: M47.812 Spondylosis without myelopathy or radiculopathy, cervical region (principal); M50.323 Other cervical disc degeneration at C6-C7 level; I65.23 Occlusion and stenosis of bilateral carotid arteries; I34.0 Nonrheumatic mitral (valve) insufficiency; M48.02 Spinal stenosis, cervical region; R55 Syncope and collapse; R42 Dizziness and giddiness
CPT/HCPCS: 70496; 70498; 93017; Q9967

== ENCOUNTER 2025-03-14 12:25 | Day surgery (SDC) | payer MEDICARE, OTHER, SELFPAY ==
[2025-03-14 12:54] VITALS: BP 137/89; PULSE 114; RESP 16; TEMP 36.8; O2SAT 94
--- NOTE | 2025-03-14 13:00 | P.HP_ITS ---
History of Present Illness History of Present Illness Date Patient Seen: 03/14/25 Chief complaint: SDC Narrative: NEE FOR 1ST SCREENING COLONOSCOPY. [facility] Medical History (Updated 03/01/25 @ 10:10 by Margy Grullon PA-C) Macular degeneration URI (upper respiratory infection) Hypertension Medicare annual wellness visit, subsequent Well adult exam Hepatitis A (~1989) Adopted Hyperlipidemia Benign neoplasm of adenomatous polyp (2015) Colon polyp (2010) Surgical History History of right inguinal hernia repair History of colonoscopy with polypectomy History of hernia repair H/O colonoscopy (2010) Social History household members: spouse and significant other Smoking Status: Never smoker alcohol intake: current Meds Home Medications and Allergies Home Medications ?Medication ?Instructions ?Recorded ?Confirmed ?Type amlodipine 2.5 mg tablet 2.5 mg PO BEDTIME #90 tabs 0 06/14/24 03/01/25 Rx rosuvastatin 40 mg tablet See Rx Instructions .Route 0 06/14/24 03/01/25 Rx .COMPLEX #90 tabs cholecalciferol (vitamin D3) 125 125 mcg PO DAILY 02/1003/01/25 History mcg (5,000 unit) capsule Allergies Allergy/AdvReac Type Severity Reaction Status Date / Time No Known Drug Allergies Allergy Verified 03/14/25 12:47 Exam Vital Signs (past 8 hours): - 03/14/25 12:54 Temperature 98.2 F Pulse Rate 114 H Respiratory Rate 16 Blood Pressure 137/89 Pulse Oximetry 94 Oxygen Delivery Method Room Air Oxygen Delivery Method Room Air Narrative Exam Narrative: OROPHARYNX FREE OF LESIONS CHEST CLEAR TO AUSCULTATION PERCUSSION CARDIAC EXAM REVEALS NO S3 OR MURMUR Assessment & Plan Assessment & Plan narrative: PERSONAL HISTORY OF COLON POLYPS NEED FOR FOLLOW-UP. RISKS, BENEFITS, ALTERNATIVES HAVE BEEN EXPLAINED. Time-Based Coding :: [TOTAL MINUTES] spent with patient and on the chart (including review of chart, obtaining history, exam, reviewing outside data, placing orders, documenting exam and treatment plan, and counseling patient) on [DATE]. 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
--- NOTE | 2025-03-14 13:03 | PM.OP.COLON ---
Operative Date/Time/Diagnoses Date of procedure: 03/14/25 Time of procedure: 13:58 Pre-op diagnosis: See indication and findings Post-op diagnosis: other Procedure & Clinicians Study performed: Colonoscopy Same procedure(s) as scheduled: Yes Indications: Screening Surgeon: Josey Nguyen Anesthesia Type: Other Procedure Notes Procedure in detail: After informed consent was obtained the patient was placed in left lateral decubitus position. The video colonoscope was placed in the rectum slowly advanced cecum. Preparation was good. On slow withdrawal mucosa was carefully examined. The scope was removed. The patient tolerated procedure well. Blood loss none Complications none Sedation mac Findings 1. Extensive sigmoid and left-sided diverticulosis 2. Moderate to large internal hemorrhoids 3. Otherwise negative colonoscopy to cecum Patient should have follow-up colonoscopy 5-7 years. Estimated Blood Loss: 0 Complications: none
[2025-03-14] MEDS: LACTATED RINGERS 1,000 ML 42 ML IV (13:17)
[2025-03-14 13:59] VITALS: BP 106/63; PULSE 92; RESP 16; TEMP 36.6; O2SAT 94
[2025-03-14 14:04] VITALS: BP 108/71; PULSE 92; RESP 16; O2SAT 94
[2025-03-14 14:09] VITALS: BP 100/62; PULSE 96; RESP 14; O2SAT 94
[2025-03-14 14:15] VITALS: BP 108/71; PULSE 91; RESP 16; TEMP 36.1; O2SAT 98
== END 2025-03-14 14:32 | disposition home or self-care (01) ==
PROVIDERS: Family Provider Family Medicine; PCP Family Medicine; Referring Provider Family Medicine; Visit Provider Internal Medicine Gastroenterology
PROC: 0DJD8ZZ Inspection of Lower Intestinal Tract, Via Natural or Artificial Opening Endoscopic (ICD-10-PCS; CPT 45378; principal; 2025-03-14 13:30)
DX: Z12.11 Encounter for screening for malignant neoplasm of colon (principal); K57.30 Diverticulosis of large intestine without perforation or abscess without bleeding; K64.8 Other hemorrhoids
CPT/HCPCS: G0121; J2704; J7120

== ENCOUNTER → 2025-03-16 09:34 | Outpatient (CLI) | payer MEDICARE, OTHER, SELFPAY | LOC: CAR 09:35 | PROVIDERS: Family Provider Family Medicine; PCP Family Medicine; Referring Provider Physician Assistant; Visit Provider Physician Assistant | DX: R00.2 Palpitations (principal); R42 Dizziness and giddiness | CPT/HCPCS: 93246 ==

== ENCOUNTER → 2025-04-22 09:10 | Outpatient (CLI) | payer MEDICARE, OTHER, SELFPAY ==
--- NOTE | 2025-04-22 09:11 | DI.CT.S_ITS ---
PROCEDURE: CT ANGIO CHEST PE PROTOCOL INDICATIONS: Exertion fatigue rule out PE TECHNIQUE: After the administration of intravenous contrast, 2 mm thick sections acquired from the pulmonary apices to the posterior costophrenic angles. 3-dimensional maximum intensity projection (MIP) coronal and sagittal reformats were then acquired through the thorax. For radiation dose reduction, the following was used: automated exposure control, adjustment of mA and/or kV according to patient size. COMPARISON: [facility], CT, CT ABDOMEN PELVIS W CON, 02/05/2025, 13:28. CR, XR CHEST 2V, 08/15/2023, 11:31. FINDINGS: Image quality: Diagnostic. Pulmonary arteries: Pulmonary arteries are normal in size, and demonstrate no intraluminal filling defects to suggest central pulmonary embolism. Lower Neck: No enlarged lymph nodes. Thyroid: No thyroid nodules which require sonographic follow up, per consensus guidelines. Axillae: No enlarged lymph nodes. Chest Wall: Unremarkable. Bones: Unremarkable. Lungs and Pleura: No pneumothorax or pleural effusions. No consolidation or suspicious nodules. Heart: Heart size is normal. No pericardial effusion. Thoracic Vessels: No aortic aneurysm. Mediastinum and [place]: No enlarged lymph nodes. Esophagus: No wall thickening. Minimal hiatal hernia. Upper Abdomen: Visualized upper abdomen solid organs and bowel loops appear normal. IMPRESSION: No pulmonary embolus. No acute cardiopulmonary process. Dictated by: Aida Foster M.D. on 04/22/2025 at 10:35 Approved by: Aida Foster M.D. on 04/22/2025 at 10:37
[2025-04-22 09:47] LABS: Estimated Glomerular Filt Rate > 60 mL/min (>60)
== END ==
PROVIDERS: Family Provider Family Medicine; PCP Family Medicine; Referring Provider Family Medicine; Visit Provider Family Medicine
DX: R53.83 Other fatigue (principal)
CPT/HCPCS: 71275; 82565; Q9967